=== PATIENT | male | born 1960 ===

== ENCOUNTER → 2020-12-20 | Outpatient (REF) ==
--- NOTE | 2020-12-20 13:57 | REP ---
INDICATION: PAIN COMPARISON: None. TECHNIQUE: Internal rotation, external rotation, and Y view. FINDINGS: Arthritic degenerative changes include blunting and sclerotic changes involving the glenoid rim with subtle spurring as well as inferior bulky osteophyte forming along the humeral head. Cortical irregularity at the humeral tuberosity is also identified. No acute fracture or dislocation. 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 <Electronically signed by Jaylan Oliveira > 12/20/20 0660
== END ==
LOC: M PLAIMG 13:03
PROVIDERS: ATTEND Internal Medicine
DX: M25.511 Pain in right shoulder (principal); M19.011 Primary osteoarthritis, right shoulder